=== PATIENT | female | born 1950 | race Two or more races ===

== ENCOUNTER → 2019-01-05 | Outpatient (CLI) | payer MEDICARE ==
[~2019-01-05] MED LIST: BARIUM SULFATE 176 GM SUSP.RECON ONE; EZ-HD SUSPENSION(BARIUM SULFATE 340GM) PO ONE
== END | disposition home or self-care (01) ==
LOC: RAD 10:23
DX: K31.89 Other diseases of stomach and duodenum (principal)
CPT/HCPCS: 74249